=== PATIENT | female | born 1990 | race Two or more races ===

== ENCOUNTER 2019-07-26 22:49 | Emergency (ER) | payer OTHER ==
[~2019-07-26] VITALS: Ht 149.9 cm; Wt 56.7 kg
[2019-07-27] MEDS ORDERED: DOLOGESIC 500-1 EACH PO (05:50)
[2019-07-27] MEDS ORDERED: CEFUROXIME500 MG PO (05:50)
== END 2019-07-27 05:58 | disposition home or self-care (01) ==
LOC: ER 22:49
DX: R53.81 Other malaise (principal); R11.0 Nausea; N39.0 Urinary tract infection, site not specified

== ENCOUNTER 2020-05-21 13:30 | Inpatient (IN) | payer OTHER ==
[~2020-05-21] VITALS: Ht 149.9 cm; Wt 3.2 kg
[~2020-05-21 13:30] MED LIST: CEFUROXIME500 MG PO; DOLOGESIC 500-1 EACH PO
== END 2020-06-14 12:40 | disposition home or self-care (01) | DRG 787 ==
LOC: OB/GYN 06-10 19:30 → LDR 06-10 19:30 → O/R 06-11 13:23 → OB/GYN 06-11 14:46 → LDR 06-14 13:30
PROVIDERS: ADMIT Obstetrics & Gynecology; ATTEND Obstetrics & Gynecology
PROC: 4A1HXFZ Monitoring of Products of Conception, Cardiac Rhythm, External Approach (ICD-10-PCS; 2020-06-10)
PROC: 10D00Z1 Extraction of Products of Conception, Low, Open Approach (ICD-10-PCS; principal; 2020-06-11 12:15)
DX: O13.4 Gestational [pregnancy-induced] hypertension without significant proteinuria, complicating childbirth (principal); O99.12 Other diseases of the blood and blood-forming organs and certain disorders involving the immune mechanism complicating childbirth; D69.6 Thrombocytopenia, unspecified; O12.24 Gestational edema with proteinuria, complicating childbirth; Z3A.39 39 weeks gestation of pregnancy; Z37.0 Single live birth; Z20.822 Contact with and (suspected) exposure to COVID-19

== ENCOUNTER 2020-06-04 12:10 | Outpatient (CLI) | payer OTHER | END 2020-06-05 10:03 | disposition home or self-care (01) | LOC: OBS/DEL 12:10 | PROVIDERS: ATTEND Obstetrics & Gynecology | DX: O47.1 False labor at or after 37 completed weeks of gestation (principal); Z20.828 Contact with and (suspected) exposure to other viral communicable diseases ==

== ENCOUNTER 2020-06-09 05:40 | Outpatient (CLI) | payer OTHER | END 2020-06-09 10:58 | disposition home or self-care (01) | LOC: OBS/DEL 05:40 | PROVIDERS: ATTEND Obstetrics & Gynecology | DX: O47.1 False labor at or after 37 completed weeks of gestation (principal); Z20.828 Contact with and (suspected) exposure to other viral communicable diseases ==